=== PATIENT | male | born 1995 | race Caucasian/White ===

== ENCOUNTER 2021-10-02 10:58 | Emergency (ER) | payer OTHER ==
[2021-10-02 11:02] LABS: Glucose,Whole Blood 132 mg/dL (70-110)
[2021-10-02 11:07] VITALS: RESP 18; TEMP 98.2
--- NOTE | 2021-10-02 11:11 | ED ---
Seizure HPI - General Chief Complaint: Seizure Stated Complaint: seizures Time Seen by Provider: 10/02/21 11:09 Source: patient, EMS, RN notes reviewed Mode of arrival: ambulatory Limitations: no limitations - Related Data Allergies Allergy/AdvReac Type Severity Reaction Status Date / Time No Known Allergies Allergy Verified 10/02/21 11:01 Review of Systems ROS Statement: Those systems with pertinent positive or pertinent negative responses have been documented in the HPI. ROS Other: All systems not noted in ROS Statement are negative. Past Medical History History of Any Multi-Drug Resistant Organisms: None Reported Past Psychological History: ADD/ADHD, Anxiety Smoking Status: Current every day smoker Past Alcohol Use History: None Reported Past Drug Use History: Heroin, Marijuana General Exam Limitations: no limitations Course Vital Signs 10/02/21 11:03 Temperature 98.2 F Pulse Rate 90 Respiratory 18 Rate Blood Pressure 138/82 O2 Sat by Pulse 99 Oximetry Medical Decision Making - Lab Data Lab Results 10/02/21 Range/Units 11:01 POC Glucose (mg/dL) 132 H (70-110) mg/dL POC Glu Curator Of [employer] ID Bobbi Zazueta Disposition Referrals: Nonstaff,Physician [Primary Care Provider] - 1-2 days
--- NOTE | 2021-10-02 11:22 | ED ---
Seizure HPI - General Chief Complaint: Seizure Stated Complaint: seizures Time Seen by Provider: 10/02/21 11:09 Source: patient, EMS, RN notes reviewed Mode of arrival: ambulatory Limitations: no limitations - History of Present Illness Initial Comments: Patient is a 26-year-old male presents the emergency room via EMS after having multiple witnessed seizures at work today. He reports that he was on the roof when he fell down to his knee but did not fall off the roof and broke up with his coworkers around him advising him that he had multiple seizures in a row prior to regaining consciousness. He is unsure the type of seizure activity that he had and he is not accompanied by anyone to review his activity during his seizure. He reports that he had a single seizure approximately 10 years ago which was attributed to gas fumes after further workup. He does admit to near daily heroin use. He is on medications intermittently for ADHD and anxiety. Reports that he has not taken Klonopin or any ADHD medications recently. He is concerned regarding possible dehydration as his fluid intake is poor. At this time he feels well and denies any complaints or concerns. He denies any focal neurological deficits, headaches, muscle pain, abdominal pain, nausea, vomiting, fevers or chills. He has no other significant past medical history. - Related Data Home Medications Medication Instructions Recorded Confirmed clonazePAM 0.5 mg PO BID 10/02/21 10/02/21 Allergies Allergy/AdvReac Type Severity Reaction Status Date / Time No Known Allergies Allergy Verified 10/02/21 12:20 Review of Systems ROS Statement: Those systems with pertinent positive or pertinent negative responses have been documented in the HPI. ROS Other: All systems not noted in ROS Statement are negative. Past Medical History History of Any Multi-Drug Resistant Organisms: None Reported Past Psychological History: ADD/ADHD, Anxiety Smoking Status: Current every day smoker Past Alcohol Use History: None Reported Past Drug Use History: Heroin, Marijuana General Exam Limitations: no limitations General appearance: alert, in no apparent distress Head exam: Present: atraumatic, normocephalic, normal inspection Eye exam: Present: normal appearance, PERRL, EOMI. Absent: scleral icterus, conjunctival injection, periorbital swelling ENT exam: Present: normal exam, mucous membranes moist Neck exam: Present: normal inspection. Absent: tenderness, meningismus, lymphadenopathy Respiratory exam: Present: normal lung sounds bilaterally. Absent: respiratory distress, wheezes, rales, rhonchi, stridor Cardiovascular Exam: Present: regular rate, normal rhythm, normal heart sounds. Absent: systolic murmur, diastolic murmur, rubs, gallop, clicks GI/Abdominal exam: Present: soft, normal bowel sounds. Absent: distended, tenderness, guarding, rebound, rigid Extremities exam: Present: normal inspection, full ROM, normal capillary refill. Absent: tenderness, pedal edema, joint swelling, calf tenderness Back exam: Present: normal inspection Neurological exam: Present: alert, oriented X3, CN II-XII intact, normal gait, reflexes normal Expanded Speech: Present: fluid speech Cranial nerves: Gag Reflex: Normal Eye Response: (4) open spontaneously Motor Response: (6) obeys commands Verbal Response: (5) oriented [place] Total: 15 Psychiatric exam: Present: normal affect, normal mood Skin exam: Present: abrasion (Right knee) Course Vital Signs 10/02/21 10/02/21 11:03 13:31 Temperature 98.2 F Pulse Rate 90 85 Respiratory 18 18 Rate Blood Pressure 138/82 120/71 O2 Sat by Pulse 99 99 Oximetry Medical Decision Making - Medical Decision Making 26-year-old male presents emergency room via EMS for seizure activity witnessed by coworkers. Previous seizure 10 years ago due to nauseous stimuli. High likelihood of recurrence of seizures due to nauseous stimuli as multiple heroin use is within last 24 hours. We'll check CBC, CMP, lactic acid, urine drug screen along with CT of the head. No current seizure activities. Will continue seizure precautions and monitor. Lactic acid level elevated at 4.1 consistent with recent seizures and no other severe laboratory anomalies. CT of the brain with no intracranial hemorrhage, mass effect or midline shift seen. Patient resting comfortably during the emergency room stay without any further seizure activity. Patient would like to be discharged home. Will discharge home with follow-up with his primary care provider encouraged follow-up and avoidance of illicit substances. Case discussed with Dr. Bingham. - Lab Data Result diagrams: 10/02/21 11:19 10/02/21 11:19 Lab Results 10/02/21 10/02/21 10/02/21 Range/Units 11:01 11:19 11:19 WBC 9.9 (3.8-10.6) k/uL RBC 4.55 (4.30-5.90) m/uL Hgb 13.5 (13.0-17.5) gm/dL Hct 41.1 (39.0-53.0) % MCV 90.4 (80.0-100.0) fL MCH 29.6 (25.0-35.0) pg MCHC 32.8 (31.0-37.0) g/dL RDW 12.6 (11.5-15.5) % Plt Count 374 (150-450) k/uL MPV 7.7 Neutrophils % 71 % Lymphocytes % 18 % Monocytes % 7 % Eosinophils % 2 % Basophils % 0 % Neutrophils # 7.0 (1.3-7.7) k/uL Lymphocytes # 1.8 (1.0-4.8) k/uL Monocytes # 0.7 (0-1.0) k/uL Eosinophils # 0.2 (0-0.7) k/uL Basophils # 0.0 (0-0.2) k/uL Sodium 138 (137-145) mmol/L Potassium 3.9 (3.5-5.1) mmol/L Chloride 100 (98-107) mmol/L Carbon Dioxide 25 (22-30) mmol/L Anion Gap 13 mmol/L BUN 13 (9-20) mg/dL Creatinine 0.65 L (0.66-1.25) mg/dL Est GFR (CKD-EPI)AfAm >90 (>60 ml/min/1.73 sqM) Est GFR (CKD-EPI)NonAf >90 (>60 ml/min/1.73 sqM) Glucose 103 H (74-99) mg/dL POC Glucose (mg/dL) 132 H (70-110) mg/dL POC Glu [place] Puff Maker ID Marbin Bobbi Plasma Lactic Acid Yannick (0.7-2.0) mmol/L Calcium 9.6 (8.4-10.2) mg/dL Magnesium 1.9 (1.6-2.3) mg/dL Total Bilirubin 0.3 (0.2-1.3) mg/dL AST 26 (17-59) U/L ALT 21 (4-49) U/L Alkaline Phosphatase 64 (38-126) U/L Total Protein 6.4 (6.3-8.2) g/dL Albumin 4.4 (3.5-5.0) g/dL 10/02/21 Range/Units 11:27 WBC (3.8-10.6) k/uL RBC (4.30-5.90) m/uL Hgb (13.0-17.5) gm/dL Hct (39.0-53.0) % MCV (80.0-100.0) fL MCH (25.0-35.0) pg MCHC (31.0-37.0) g/dL RDW (11.5-15.5) % Plt Count (150-450) k/uL MPV Neutrophils % % Lymphocytes % % Monocytes % % Eosinophils % % Basophils % % Neutrophils # (1.3-7.7) k/uL Lymphocytes # (1.0-4.8) k/uL Monocytes # (0-1.0) k/uL Eosinophils # (0-0.7) k/uL Basophils # (0-0.2) k/uL Sodium (137-145) mmol/L Potassium (3.5-5.1) mmol/L Chloride (98-107) mmol/L Carbon Dioxide (22-30) mmol/L Anion Gap mmol/L BUN (9-20) mg/dL Creatinine (0.66-1.25) mg/dL Est GFR (CKD-EPI)AfAm (>60 ml/min/1.73 sqM) Est GFR (CKD-EPI)NonAf (>60 ml/min/1.73 sqM) Glucose (74-99) mg/dL POC Glucose (mg/dL) (70-110) mg/dL POC Glu [employer] Puff Maker ID Plasma Lactic Acid Yannick 4.3 H* (0.7-2.0) mmol/L Calcium (8.4-10.2) mg/dL Magnesium (1.6-2.3) mg/dL Total Bilirubin (0.2-1.3) mg/dL AST (17-59) U/L ALT (4-49) U/L Alkaline Phosphatase (38-126) U/L Total Protein (6.3-8.2) g/dL Albumin (3.5-5.0) g/dL - EKG Data EKG Comments: Sinus rhythm, incomplete right bundle branch block, ventricular rate 77 bpm, [place] interval 129 ms, QRS duration 103 ms, QT/QTC 359/391 ms, PRT axes 42, 88, 43 - Radiology Data Radiology results: report reviewed, image reviewed CT of the brain without contrast findings there is no acute intracranial hemorrhage, mass effect or midline shift identified. The ventricles and sulci are within normal limits in size. The globes are intact and changes of mild chronic sinusitis. Impression no acute intracranial hemorrhage, mass effect or midline shift seen. Disposition Clinical Impression: Generalized seizure Disposition: HOME SELF-CARE Instructions (If sedation given, give patient instructions): Seizure/Epilepsy Discharge Instructions & Follow-Up Additional Instructions: Please follow-up with your primary care provider. Do not drive or operate machinery until cleared by her primary care provider or any specialists that they may choose to refer you to. Please go to the nearest emergency department for any new seizure activity. Recommend staying well hydrated. Avoid activities on the roof until you remain seizure-free and cleared by your primary care provider. Avoid illicit substances and alcohol. Please return to the Emergency Department if symptoms worsen or any other concerns. Is patient prescribed a controlled substance at d/c from ED?: No Referrals: Nonstaff,Physician [Primary Care Provider] - 1-2 days Time of Disposition: 14:16
[2021-10-02 11:49] LABS: Basophils % (A) 0 %; Eosinophils # (A) 0.2 k/uL (0-0.7); Eosinophils % (A) 2 %; HCT 41.1 % (39.0-53.0); HGB 13.5 gm/dL (13.0-17.5); Lymphocytes # (A) 1.8 k/uL (1.0-4.8); Lymphocytes % (A) 18 %; MCH 29.6 pg (25.0-35.0); MCHC 32.8 g/dL (31.0-37.0); MCV 90.4 fL (80.0-100.0); Mean Platelet Volume 7.7; Monocytes # (A) 0.7 k/uL (0-1.0); Monocytes % (A) 7 %; Neutrophils % (A) 71 %; Platelet Count 374 k/uL (150-450); RBC 4.55 m/uL (4.30-5.90); RDW 12.6 % (11.5-15.5); WBC 9.9 k/uL (3.8-10.6)
[2021-10-02 12:02] LABS: ALT 21 U/L (4-49); AST 26 U/L (17-59); African American GFR (CKD) >90 (>60 ml/min/1.73 sqM); Albumin 4.4 g/dL (3.5-5.0); Alkaline Phosphatase 64 U/L (38-126); Anion Gap 13 mmol/L; Blood Urea Nitrogen 13 mg/dL (9-20); Calcium 9.6 mg/dL (8.4-10.2); Carbon Dioxide 25 mmol/L (22-30); Chloride 100 mmol/L (98-107); Glucose 103 mg/dL (74-99); Magnesium 1.9 mg/dL (1.6-2.3); Non-African American GFR(CKD) >90 (>60 ml/min/1.73 sqM); Potassium 3.9 mmol/L (3.5-5.1); Sodium 138 mmol/L (137-145); Total Bilirubin 0.3 mg/dL (0.2-1.3); Total Protein 6.4 g/dL (6.3-8.2)
--- NOTE | 2021-10-02 12:06 | CT ---
EXAMINATION TYPE: CT brain wo con DATE OF EXAM: 10/02/2021 COMPARISON: None HISTORY: Seizure activities CT DLP: 1141.4 mGycm. Automated Exposure Control for Dose Reduction was Utilized. TECHNIQUE: CT scan of the head is performed without contrast. FINDINGS: There is no acute intracranial hemorrhage, mass effect, or midline shift identified. The ventricles and sulci are within normal limits in size. The globes are intact and changes of mild ch ronic sinusitis. IMPRESSION: No acute intracranial hemorrhage, mass effect, or midline shift is seen.
[2021-10-02 13:34] VITALS: BP 120/71; PULSE 85
== END 2021-10-02 14:30 | disposition home or self-care (01) ==
LOC: EC 10:58
DX: R56.9 Unspecified convulsions (principal); F17.200 Nicotine dependence, unspecified, uncomplicated
CPT/HCPCS: 36415; 70450; 80053; 83605; 83735; 85025; 93005; 99285